=== PATIENT | female | born 1995 | race Caucasian/White ===

== ENCOUNTER 2016-12-24 06:55 | Emergency (ER) | payer OTHER ==
[~2016-12-24] VITALS: Ht 154.9 cm; Wt 66.0 kg
[~2016-12-24 06:55] MED LIST: MIRALAX; PANTOPRAZOLE
[2016-12-24 07:00] VITALS: Ht 154.9 cm; Wt 66.0 kg
[2016-12-24] MEDS ORDERED: FAMOTIDINE 20 MG TAB PO STA (07:19)
[2016-12-24] MEDS ORDERED: LIDOCAINE/MYLANTA 40 ML BTL PO STA (07:19)
[2016-12-24] MEDS ORDERED: FAMO-18 PO (07:25)
[2016-12-24] MEDS ORDERED: ACET325T33 PO (07:25)
[2016-12-24 07:34] LABS: URINE BLOOD (Dip) POC 3+ (NEGATIVE)
[2016-12-24 08:02] VITALS: BP 115/68; PULSE 74; RESP 19; TEMP 98.4
--- NOTE | 2016-12-24 08:16 | ERD ---
ER Documentation Chief Complaint Date/Time DATE: 12/24/16 TIME: 07:57 Chief Complaint ap x 1 week HPI This is a 21-year-old female with a history of leukemia in remission for 17 years and gastritis presenting to the emergency department complaining of mild to moderate nonradiating epigastric pain that comes and goes in severity for the past week. Patient states that she was diagnosed with gastritis by endoscopy by her physician Dr. Cevallos who has given her Bentyl and Protonix. Patient states that the Protonix has not been working for her. Denies fevers. Patient denies nausea, vomiting, diarrhea, urinary symptoms, cough. Patient states that last February she received a gallbladder ultrasound which was normal. Patient states that she is on her menstrual period right now, ROS All 10 systems reviewed and are negative except as per history of present illness. Medications Home Meds Active Scripts Acetaminophen* (Tylenol*) 325 Mg Tablet, 2 TAB PO Q6 Y for PAIN AND OR ELEVATED TEMP, #30 TAB Prov:GLENDY EWING PA-C 12/24/16 Famotidine* (Pepcid*) 20 Mg Tablet, 20 MG PO QHS, #30 TAB Prov:GLENDY EWING PA-C 12/24/16 Reported Medications [Miralax] No Conflict Check 05/20/16 [Pantoprazole] No Conflict Check 05/20/16 Allergies Allergies: Coded Allergies: No Known Allergy (Unverified , 05/20/16) PMhx/Soc History of Surgery: Yes (SPINAL SX) Anesthesia Reaction: No Hx Neurological Disorder: Yes Hx Respiratory Disorders: No Hx Cardiac Disorders: No Hx Psychiatric Problems: No Hx Miscellaneous Medical Probl: Yes (LEUKEMIA; gastritis) Hx Alcohol Use: No Hx Substance Use: No Hx Tobacco Use: No Smoking Status: Never smoker Physical Exam Vitals Vital Signs Date Time Temp Pulse Resp B/P Pulse Ox O2 Delivery O2 Flow Rate FiO2 12/24/16 07:00 98.1 72 18 130/78 99 Physical Exam GENERAL: well-developed/well-nourished, in no apparent distress, non-toxic appearing HENT: NC/AT, moist mucous membranes EYES: Conjunctiva normal NECK: Supple, no lymphadenopathy PULM: CTA bilaterally, no rales, rhonchi, or wheezing heard CV: Normal S1S2, RRR, good capillary refill GI: Soft, non-distended, mild tender to palpation epigastric region Normal bowel sounds, no masses or organomegaly felt on exam No gross peritonitis, no bruits Negative Rovsing, negative Bui, negative McBurney's point, Negative CVAT BACK: No masses EXT: No clubbing, cyanosis, or edema NEURO: Alert and Orientated SKIN: Intact, normal turgor PSYCH: Normal mood and mentation Results 24 hrs Laboratory Tests Test 12/24/16 07:34 Bedside Urine pH (LAB) 7.0 Bedside Urine Protein (LAB) 1+ Bedside Urine Glucose (UA) Negative Bedside Urine Ketones (LAB) Negative Bedside Urine Blood 3+ Bedside Urine Nitrite (LAB) Negative Bedside Urine Leukocyte Esterase (L Negative Current Medications Medications (Trade) Dose Ordered Sig/Yecenia Route PRN Reason Start Time Stop Time Status Last Admin Dose Admin Famotidine (Pepcid) 20 mg ONCE STAT PO 12/24/16 07:19 12/24/16 07:21 DC 12/24/16 07:29 Miscellaneous Medication (Gi Cocktail (2)) 40 ml ONCE STAT PO 12/24/16 07:19 12/24/16 07:21 DC 12/24/16 07:29 Procedures/MDM This is a 21-year-old female with a history of leukemia in remission for 17 years and gastritis presenting to the emergency department complaining of epigastric pain for the past week Patient states that she was diagnosed with gastritis by endoscopy by her physician Dr. Cevallos who has given her Bentyl and Protonix. Patient states that last February she received a gallbladder ultrasound which was normal. Differentials include but not limited to gastritis , cholelithiasis, pancreatitis, appendicitis, or other acute abdominal or cardiopulmonary conditions. This is likely gastritis. Patient appears well, afebrile she does not seem to be in any distress. Her examination showed mild epigastric tenderness. In the ED patient was given a GI cocktail and Pepcid, I have reassessed patient and she was doing a lot better. Patient is suitable to follow-up with her GI specialist for continued care. I have discussed with her to continue taking her Protonix every morning and I have added Pepcid to take at nighttime. I have given her prescription for Tylenol for pain and discussed with her to return to the ER for any worsening signs or symptoms. Patient and mother understands and agrees with this plan. Departure Diagnosis: Primary Impression: Epigastric pain Condition: Stable Patient Instructions: Lifestyle Changes for Controlling GERD, Treating Gastritis, Understanding Gastritis, Gastritis (Adult), Epigastric Pain ( Uncertain Cause) Referrals: DOCTOR,NOT ON STAFF [facility] doctora Additional Instructions: Visite a diamond vicki castaneda para un EXAMEN.Regrese a estas instalaciones si no se mejora mario esperbamos o mario le dijimos. [place] toda la medicina diana y mario se le indic. Regrese a estas instalaciones si no se mejora mario esperbamos o mario le dijimos. GLENDY EWING PA-C Dec 24, 2016 08:16
== END 2016-12-24 08:02 | disposition home or self-care (01) ==
LOC: FTE 06:55
DX: R10.13 Epigastric pain (principal)
CPT/HCPCS: 81003; Z7610; 99283